=== PATIENT | female | born 1950 | race Caucasian/White ===

== ENCOUNTER 2018-12-04 20:15 | Emergency (ER) | payer MEDICARE, OTHER ==
[~2018-12-04] VITALS: Ht 157.5 cm; Wt 53.7 kg
[2018-12-04 20:21] VITALS: Ht 157.5 cm; Wt 53.7 kg
[2018-12-04] MEDS ORDERED: LORAZEPAM 2 MG INJ IM STA (20:50)
[2018-12-04] MEDS ORDERED: HALOPERIDOL 5 MG INJ IM STA (20:50)
[2018-12-04] MEDS ORDERED: OLANZAPINE (ODT) 5 MG TAB ODT ONE (21:00)
[2018-12-05] MEDS ORDERED: OLANZAPINE (ODT) 5 MG TAB ODT ONE (15:00)
[2018-12-05 18:13] VITALS: BP 134/98; PULSE 76; RESP 16
== END 2018-12-05 18:16 ==
LOC: E/R 20:15
DX: F20.9 Schizophrenia, unspecified (principal); R40.2142 Coma scale, eyes open, spontaneous, at arrival to emergency department; R40.2362 Coma scale, best motor response, obeys commands, at arrival to emergency department; R40.2242 Coma scale, best verbal response, confused conversation, at arrival to emergency department
CPT/HCPCS: 80053; 80307; 81003; 85025; 96372; 99285; J1630; J2060